=== PATIENT | male | born 1995 | race Caucasian/White ===

== ENCOUNTER → 2016-09-09 | Outpatient (CLI) | payer OTHER ==
--- NOTE | 2016-09-09 14:58 | CPEEG ---
[f rep st] ELECTROENCEPHALOGRAM DATE OF STUDY: 09/09/2016 INTERPRETATION: Normal EEG during wakefulness and sleep. There were no potentially epileptogenic ab normalities present during the recording. REPORT: This EEG contains 10 Hz alpha to the posterior head regions. There was no abnormal activati on at rest, during photic stimulation, or hyperventilation. The patient became drowsy and fell aslee p during the study. During relaxed wakefulness, the patient had a bi-central mu rhythm, maximal lef t. This is a normal finding of the background activity. There was no abnormal activation during rick wsiness, sleep, or during times of arousal. /[id number]/MODL
== END ==
LOC: FCPNEURO 11:41
PROVIDERS: ATTEND Psychiatry & Neurology Neurology
DX: G40.909 Epilepsy, unspecified, not intractable, without status epilepticus (principal); E10.9 Type 1 diabetes mellitus without complications

== ENCOUNTER 2017-03-31 01:36 | Emergency (ER) | payer OTHER ==
[2017-03-31 01:44] VITALS: RESP 18
--- NOTE | 2017-03-31 02:35 | EDPHY ---
H & P Stated Complaint: R pointer finger lac on broken glass x30 minutes Time Seen by Provider: 03/31/17 02:25 HPI/ROS: Chief Complaint: Right hand laceration HPI: 22-year-old male lacerated his right index finger when he accidentally put his hand through piece of glass. 730 minutes prior to arrival. No numbness or weakness. No history of prior injuries in the past. He is up-to- date in his tetanus. Patient has been drinking 5-6 beers tonight. ROS: 10 point Review of Systems is negative except as noted in the HPI. PMH: Denies Social History: No smoking, positive alcohol, no recreational drug use Family History: non-contributory Physical Exam: General: Awake, alert, no acute distress Right hand: There is a 2.5 cm oblique laceration over his dorsal aspect of his proximal right 2nd phalanx. It is not overlying the joint. There is no tendon involvement. He has full flexion extension strength of his index finger. Sensations intact in the lateral medial aspects. Capillary refills less than 2 seconds. Skin: No rash - Personal History Current Tetanus/Diphtheria Vaccine: Yes Current Tetanus Diphtheria and Acellular Pertussis (TDAP): Yes Tetanus Vaccine Date: 2014 - Medical/Surgical History Hx Asthma: No Hx Chronic Respiratory Disease: No Hx Diabetes: Yes Hx Cardiac Disease: No Hx Renal Disease: No Hx Cirrhosis: No Hx Alcoholism: No Hx HIV/AIDS: No Hx Splenectomy or Spleen Trauma: No Other PMH: DM - Social History Smoking Status: Current some day smoker Constitutional: Initial Vital Signs Temperature (C) 36.5 C 03/31/17 01:38 Heart Rate 98 03/31/17 01:38 Respiratory Rate 18 03/31/17 01:38 Blood Pressure 135/90 H 03/31/17 01:38 O2 Sat (%) 95 03/31/17 01:38 O2 Delivery Mode Room Air Allergies/Adverse Reactions: No Known Allergies Allergy (Verified 03/31/17 01:42) Home Medications: Medication Instructions Recorded Insulin 12/09/13 Lantus 12/09/13 Medical Decision Making Procedures: Procedure: Digital nerve block, indication is digit anesthesia for procedure. Patient was prepped with chlorhexidine Skin prep. 0.5% bupivacaine was infiltrated in the medial in lateral aspects for with a dorsal approach at the base of the proximal phalanx with blockage of both dorsal and volar nerves. Total of 1 mL was infiltrated. There were no complications. Procedure was performed by myself. Procedure: Laceration repair. Verbal consent was obtained from the patient. The 2.5 cm laceration on the right index finger was anesthetized with a digital block. The wound was irrigated, draped and explored to its base with a gloved finger. There were no deep structures involved. No tendon injury was identified. The wound was repaired with 9, 5-0 Ethilon simple interrupted sutures. The wound repair was uncomplicated. The procedure was performed by myself. Departure - Departure Disposition: Home, Routine, Self-Care Clinical Impression: Laceration Condition: Good Instructions: Laceration (ED) Additional Instructions: Sutures need to be removed in 10 days. Return emergency depart for increasing redness, pus from the wound, increasing pain, or any other concerns. Referrals: E[facility] [Other] - As per Instructions
[2017-03-31 04:06] VITALS: BP 127/73; PULSE 80; TEMP 98.8; O2SAT 97
== END 2017-03-31 04:06 | disposition home or self-care (01) ==
PROC: 0HQFXZZ Repair Right Hand Skin, External Approach (ICD-10-PCS; principal; 2017-03-31)
DX: S61.210A Laceration without foreign body of right index finger without damage to nail, initial encounter (principal); E11.9 Type 2 diabetes mellitus without complications; F17.200 Nicotine dependence, unspecified, uncomplicated; Z79.4 Long term (current) use of insulin; W25.XXXA Contact with sharp glass, initial encounter

== ENCOUNTER 2017-04-26 10:47 | Emergency (ER) | payer OTHER ==
--- NOTE | 2017-04-26 11:04 | EDPHY ---
H & P Time Seen by Provider: 04/26/17 11:03 - Personal History Tetanus Vaccine Date: 2014 - Medical/Surgical History Hx Asthma: No Hx Chronic Respiratory Disease: No Hx Diabetes: Yes Hx Cardiac Disease: No Hx Renal Disease: No Hx Cirrhosis: No Hx Alcoholism: No Hx HIV/AIDS: No Hx Splenectomy or Spleen Trauma: No Other PMH: DM - Social History Smoking Status: Current some day smoker Allergies/Adverse Reactions: No Known Allergies Allergy (Verified 03/31/17 01:42) Home Medications: Medication Instructions Recorded Insulin 12/09/13 Lantus 12/09/13 Medical Decision Making ED Course/Re-evaluation: CHIEF COMPLAINT: HISTORY OF PRESENT ILLNESS: must have 4 elements: Location, Quality, Severity , Duration, Timing, Context, Modifying Factors, Associated Signs and Symptoms REVIEW OF SYSTEMS: A 10 point review of systems was performed and is negative with the exception of the elements mentioned in the history of present illness. PHYSICAL EXAM: HR, BP, O2 Sat, RR. Temp noted General Appearance: Alert, well hydrated, appropriate, and non-toxic appearing. Head: Atraumatic without scalp tenderness or obvious injury Eyes: Pupils equal, round, reactive to light and accommodation, EOMI, no trauma , no injection. Ears: Clear bilaterally, no perforation, normal landmarks Nose: Atraumatic, no rhinorrhea, clear. Throat: There is no erythema or exudates, no lesions, normal tonsils, mucus membranes moist. Neck: Supple, 2+ carotid upstroke, nontender, no lymphadenopathy. Respiratory: No retractions, no distress, no wheezes, and no accessory muscle use. Lungs are clear to auscultation bilaterally. Cardiovascular: Regular rate and rhythm, no murmurs, rubs, or gallops. Bilateral carotid, radial, dorsalis pedis, and posterior tibial pulses intact. Good capillary refill all extremities. Gastrointestinal: Abdomen is soft, nontender, non-distended, no masses, no rebound, no guarding, no peritoneal signs. Musculoskeletal: Normal active ROM of all extremities, atraumatic. Neurological: Alert, appropriate, and interactive. The patient has normal DTRs and non-focal cranial nerves, motor, sensory, and cerebellar exam. Skin: No rashes, good turgor, no nodules on palpation. Past medical history: Past surgical history: Family history: Social history: DIAGNOSTICS/PROCEDURES/CRITICAL CARE TIME: DIFFERENTIAL DIAGNOSIS: MEDICAL DECISION MAKING: Departure - Departure Referrals: Patient,NotPresent [Primary Care Provider] - As per Instructions
[2017-04-26 11:05] VITALS: RESP 16
[2017-04-26] MEDS ORDERED: HYDROGEN PEROXIDE 236 ML BOTTLE TP ONE (11:15)
[2017-04-26] MEDS ORDERED: LET GEL TOPICAL 1 EA SYR TP ONE (11:17)
[2017-04-26 11:19] LABS: % IMMATURE GRANULYOCYTES 0.1 % (0.0-1.1); ABSOLUTE IMMATURE GRANULOCYTES 0.01 10^3/uL (0.00-0.10); ADD DIFF? NO; ADD MORPH? NO; ADD SCAN? NO; ATYPICAL LYMPHOCYTE FLAG 30 (0-99); FRAGMENT RBC FLAG 0 (0-99); HEMATOCRIT 54.9 % (40.0-51.0); HEMOGLOBIN 18.6 g/dL (13.7-17.5); LEFT SHIFT FLG 0 (0-99); LIPEMIA HEMOLYSIS FLAG 90 (0-99); MEAN CELL HEMOGLOBIN 32.9 pg (27.9-34.1); MEAN CELL HEMOGLOBIN CONCENTR. 33.9 g/dL (32.4-36.7); PLATELET CLUMPS FLAG 0 (0-99); PLATELET COUNT 236 10^3/uL (150-400); RED BLOOD CELL COUNT 5.66 10^6/uL (4.40-6.38); RED CELL DISTRIBUTION WIDTH 12.3 % (11.5-15.2)
--- NOTE | 2017-04-26 11:23 | EDPHY ---
H & P Stated Complaint: fall down steps hypogylcemia Time Seen by Provider: 04/26/17 11:03 HPI/ROS: HPI: This is a 22-year-old male who presents with Chief Complaint: Hypoglycemic episode Location: Quality: Hypoglycemic episode Duration: Prior to arrival Signs and Symptoms: No fever, no dysuria, no abdominal pain, no nausea vomiting , no neck pain, no headache Timing: Sudden Severity: Moderate Context: Patient is a type 1 diabetic on insulin pump; reports 2 other hypoglycemic episodes in the past; seen in this ER for same. EMS reports that he was walking outside, had a witnessed tonic-clonic seizure, fell down 7 stairs. Patient does not remember the events surrounding the accident. Roommate was there and gave him glucagon and patient immediately started to wake up. Tetanus is up-to-date. Mother is at bedside. Modifying Factors: glucagon Comment: ROS: Constitutional: No fever, no chills, no weight loss Eyes: No blurred vision Respiratory: No shortness of breath, no cough Cardiovascular: No chest pain Gastrointestinal: No nausea, no vomiting no diarrhea Genitourinary: No dysuria Extremities: No myalgias Neurologic: No weakness, no numbness Skin: No rashes Hematologic: No bruising, no bleeding MEDICAL/SURGICAL/SOCIAL HISTORY: Left foot surgery. Source: Patient, Family, EMS Exam Limitations: No limitations - Personal History Current Tetanus/Diphtheria Vaccine: Yes Current Tetanus Diphtheria and Acellular Pertussis (TDAP): Yes Tetanus Vaccine Date: 2014 - Medical/Surgical History Hx Asthma: No Hx Chronic Respiratory Disease: No Hx Diabetes: Yes Hx Cardiac Disease: No Hx Renal Disease: No Hx Cirrhosis: No Hx Alcoholism: No Hx HIV/AIDS: No Hx Splenectomy or Spleen Trauma: No Other PMH: type 1DM - Social History Smoking Status: Current some day smoker - Physical Exam Exam: CONSTITUTIONAL: A pleasant young adult white male, awake and alert, no obvious distress HEENT: 1 cm vertical deep laceration over the right lateral eyebrow; mild superficial abrasion over bridge of nose. Left frontal contusion noted. normocephalic, PERRL, EOMI. Left suborbital ecchymosis noted; no crepitus, no globe entrapment. Tympanic membranes clear. Oropharynx clear, tongue at ecchymosis noted at the tip; no laceration. No lip laceration. Teeth are intact. moist pink mucosa. Airway patent. NECK: supple; flexion/extension/bilateral rotation full range of motion. No midline tenderness. No lymphadenopathy. No meningismus. Cardiovascular: Normal S1/S2, regular rate, regular rhythm, without murmur rub or gallop. PULMONARY/CHEST: Symmetrical and nontender. No crepitus. Clear to auscultation bilaterally Good air movement. No accessory muscle usage. ABDOMEN: Soft, nondistended, no ecchymosis, nontender, no rebound, no guarding , no peritoneal signs, no masses or organomegaly. No CVAT. EXTREMITIES: 2/2 pulses, left foot lateral midfoot portion swelling and deformity; tenderness to palpation. Left 5th digit small abrasion lateral aspect. right 1st digit abrasion noted at tip of toe; nail intact. no clubbing, no cyanosis or edema. PELVIS: No pain with pelvic rocking NEUROLOGICAL: no focal neuro deficits. GCS 15. Alert and oriented x3; post ictal state resolved. SKIN: Warm and dry, no erythema. no rash. Multiple superficial abrasions noted to feet and hands. Good capillary refill. Constitutional: Initial Vital Signs Temperature (C) 36.8 C 04/26/17 11:02 Heart Rate 72 04/26/17 11:02 Respiratory Rate 16 04/26/17 11:02 Blood Pressure 152/100 H 04/26/17 11:02 O2 Sat (%) 96 04/26/17 11:02 O2 Delivery Mode Room Air Allergies/Adverse Reactions: No Known Allergies Allergy (Verified 03/31/17 01:42) Home Medications: Medication Instructions Recorded Insulin 12/09/13 Lantus 12/09/13 Cyclobenzaprine [Flexeril 10 MG 10 mg PO TID PRN #15 tab 04/26/17 (*)] Medical Decision Making - Diagnostics Imaging Results: Imaging Impressions Foot X-Ray 04/26/17 11:06 Impression: No acute osseous findings. Procedures: Procedure: Laceration repair. Verbal consent was obtained from the patient. The deep vertical 2 cm laceration on the right lateral eyebrow was anesthetized in the usual fashion 5 minutes also 1% lidocaine with epinephrine. The wound was irrigated, draped and explored to its base with a gloved finger. There were no deep structures involved. No tendon injury was identified. The wound was repaired with #4, 5- 0 PDS in simple interrupted pattern. Good hemostasis was achieved and patient tolerated procedure well. The procedure was performed by myself. Steri-Strips were placed. Procedure: Splint placement. A ankle air stirrup splint was applied by the ER sleep technician. After application of the splint I returned and re-examined the patient. The splint was adequately immobilizing the joint and distal to the splint the patient's circulation and sensation was intact. ED Course/Re-evaluation: CT head indication transient loss of consciousness with tonic-clonic seizure. Labs, UA, CT maxillofacial scan ordered as well FSBS 128 upon arrival; will give meal tray and continue to monitor Tetanus up-to-date Wounds cleaned with half and half solution of normal saline and hydrogen peroxide. 1210: Called by radiologist head CT scan shows no acute intracranial process; CT maxillofacial scan shows no fracture; dislocation. # 4 Absorbable sutures were used to repair right eyebrow laceration. Foot x-ray my read shows no acute fracture dislocation; hardware noted. Suspect moderate ankle sprain; will place an air ankle splint. Offered crutches but politely declined. No signs of neurovascular compromise/tenting of skin/compartment syndrome/ extremities and joints examined above and below area of concern and are neurovascularly intact. Patient was monitored for 2 hours with blood sugar remaining stable. Differential Diagnosis: Seizure differential includes but is not limited to electrolyte abnormality, alcohol withdrawal, medication noncompliance, head injury, and breakthrough seizure. - Data Points Laboratory Results: Laboratory Results 04/26/17 11:10 04/26/17 11:10 04/26/17 04/26/17 04/26/17 11:13 11:10 11:10 WBC 7.39 10^3/uL 10^3/uL (3.80-9.50) RBC 5.66 10^6/uL 10^6/uL (4.40-6.38) Hgb 18.6 g/dL H g/dL (13.7-17.5) Hct 54.9 % H % (40.0-51.0) MCV 97.0 fL fL (81.5-99.8) MCH 32.9 pg pg (27.9-34.1) MCHC 33.9 g/dL g/dL (32.4-36.7) RDW 12.3 % % (11.5-15.2) Plt Count 236 10^3/uL 10^3/uL (150-400) MPV 10.0 fL fL (8.7-11.7) Neut % (Auto) 29.3 % L % (39.3-74.2) Lymph % (Auto) 54.8 % H % (15.0-45.0) [place] % (Auto) 9.7 % % (4.5-13.0) Eos % (Auto) 4.6 % % (0.6-7.6) Baso % (Auto) 1.5 % % (0.3-1.7) Nucleat RBC Rel Count 0.0 % % (0.0-0.2) Absolute Neuts (auto) 2.16 10^3/uL 10^3/uL (1.70-6.50) Absolute Lymphs (auto) 4.05 10^3/uL H 10^3/uL (1.00-3.00) Absolute Monos (auto) 0.72 10^3/uL 10^3/uL (0.30-0.80) Absolute Eos (auto) 0.34 10^3/uL 10^3/uL (0.03-0.40) Absolute Basos (auto) 0.11 10^3/uL H 10^3/uL (0.02-0.10) Absolute Nucleated RBC 0.00 10^3/uL 10^3/uL (0-0.01) Immature Gran % 0.1 % % (0.0-1.1) Immature Gran # 0.01 10^3/uL 10^3/uL (0.00-0.10) Sodium 141 mEq/L mEq/L (134-144) Potassium 3.8 mEq/L mEq/L (3.5-5.2) Chloride 101 mEq/L mEq/L (97-110) Carbon Dioxide 15 mEq/l L mEq/l (22-31) Anion Gap 25 mEq/L H mEq/L (8-16) BUN 13 mg/dL mg/dL (7-23) Creatinine 1.1 mg/dL mg/dL (0.7-1.3) Estimated GFR > 60 Glucose 94 mg/dL mg/dL (70-100) POC Glucose 128 mg/dL H mg/dL (70-100) Calcium 10.2 mg/dL mg/dL (8.5-10.4) Total Bilirubin 1.5 mg/dL H mg/dL (0.1-1.4) AST 31 IU/L IU/L (17-59) ALT 19 IU/L L IU/L (21-72) Alkaline Phosphatase 76 IU/L IU/L (38-126) Total Protein 8.3 g/dL H g/dL (6.3-8.2) Albumin 4.9 g/dL g/dL (3.5-5.0) Medications Given: Discontinued Medications Tetracaine/Epinephrine/Lidocaine (Let Gel Topical) 1 ea TP EDNOW ONE Stop: 04/26/17 11:18 Last Admin: 04/26/17 12:08 Dose: Not Given Point of Care Test Results: 04/26/17 11:13 POC Glucose 128 H Departure - Departure Disposition: Home, Routine, Self-Care Clinical Impression: Hypoglycemia due to type 1 diabetes mellitus, Seizure Laceration of right eyebrow without complication Qualifiers: Encounter type: initial encounter Qualified Code(s): S01.111A - Laceration without foreign body of right eyelid and periocular area, initial encounter Moderate left ankle sprain Qualifiers: Encounter type: initial encounter Qualified Code(s): S93.402A - Sprain of unspecified ligament of left ankle, initial encounter Condition: Good Instructions: Laceration (ED), Care For Your Absorbable Stitches (ED) Additional Instructions: Allow the Steri-Strips on right eyebrow laceration to fall off on their own. Your laceration was repaired with absorbable sutures; these will dissolve on their own; they will not need to be removed. Wash abrasions daily with mild soap and water; then pat dry. Take ibuprofen 600-800 mg every 6-8 hours with food as needed for pain and inflammation. He may use Flexeril 3 times a day as needed for muscle spasms. Apply ice for 30 minutes at a time; 2-3 times per day for the next 1-2 days. Wear ankle splint and use crutches for weight-bearing as tolerated until pain free. If pain persists greater than 7-10 days; Follow up with Orthopedics at which time they will evaluate and recommend further management. The x-rays obtained in the emergency department today demonstrate no evidence of an obvious fracture. Sometimes fractures are not obvious on the initial set of x-rays performed in the ED. For this reason, you should have repeat x-rays performed in 7-10 days if you are having any pain exclude the possibility of an occult fracture. Referrals: NONE *PRIMARY CARE P,. [Primary Care Provider] - As per Instructions Shun Ruiz MD [Medical Doctor] - As per Instructions Prescriptions: Cyclobenzaprine [Flexeril 10 MG (*)] 10 mg PO TID PRN #15 tab PRN Reason: Spasms
[2017-04-26 11:44] LABS: ALANINE AMINOTRANSFERASE 19 IU/L (21-72); ALBUMIN 4.9 g/dL (3.5-5.0); ALKALINE PHOSPHATASE 76 IU/L (38-126); ANION GAP 25 mEq/L (8-16); ASPARTATE AMINOTRANSFERASE 31 IU/L (17-59); BILIRUBIN,TOTAL 1.5 mg/dL (0.1-1.4); CALCIUM 10.2 mg/dL (8.5-10.4); CARBON DIOXIDE 15 mEq/l (22-31); CHLORIDE 101 mEq/L (97-110); CREATININE 1.1 mg/dL (0.7-1.3); GLOMERULAR FILTRATION RATE > 60; GLUCOSE 94 mg/dL (70-100); POTASSIUM 3.8 mEq/L (3.5-5.2); SODIUM 141 mEq/L (134-144); TOTAL PROTEIN 8.3 g/dL (6.3-8.2)
[2017-04-26 12:27] VITALS: O2SAT 94
[2017-04-26 13:15] VITALS: BP 128/86; PULSE 70; TEMP 97.9
== END 2017-04-26 13:15 | disposition home or self-care (01) ==
LOC: EDUNIT#
PROC: 0HQ1XZZ Repair Face Skin, External Approach (ICD-10-PCS; principal; 2017-04-26)
DX: E10.649 Type 1 diabetes mellitus with hypoglycemia without coma (principal); R56.9 Unspecified convulsions; S93.402A Sprain of unspecified ligament of left ankle, initial encounter; S01.111A Laceration without foreign body of right eyelid and periocular area, initial encounter; F17.200 Nicotine dependence, unspecified, uncomplicated; W10.9XXA Fall (on) (from) unspecified stairs and steps, initial encounter; Y99.8 Other external cause status; Y93.01 Activity, walking, marching and hiking
CPT/HCPCS: L4350